=== PATIENT | male | born 1980 | race African-American/Black ===

== ENCOUNTER → 2016-07-23 | Day surgery (SDC) | payer OTHER ==
[~2016-07-23] MED LIST: NO MEDICATIONS
--- NOTE | ~2016-07-23 | OR ---
Unit #: [id number] #: [id number] Patient: ILSA BLOOM [id number] [address] [place], [place] [address] [id number] O MR#: [id number] NAME: ILSA BLOOM ROOM: Date of Procedure: 07/23/2016 Admission Date: 07/23/2016 Surgeon: Julius Melo M.D. : 1980 Attending Physician: Julius Melo M.D. Primary Care Physician: Primary Care Physician No OPERATIVE REPORT PREOPERATIVE DIAGNOSIS Enlarging lipoma, left upper back. POSTOPERATIVE DIAGNOSIS Enlarging lipoma, left upper back. PROCEDURE PERFORMED Excision of enlarging lipoma, left upper back 6 x 6 cm with layered closure. ANESTHESIA General LMA anesthesia with 0.5% Marcaine plain local anesthesia. FINDINGS The patient was found to have a 6 x 6 cm lipoma, that was excised completely and sent to Pathology. SPECIMENS Sent to Pathology. COMPLICATIONS None apparent. CONDITION The patient tolerated the procedure well. INDICATIONS FOR PROCEDURE The patient is a 36-year-old black male, who presents at this time with enlarging subcutaneous mass of the left upper back. He presents at this time for excision for pathologic diagnosis and treatment. DESCRIPTION OF PROCEDURE After obtaining informed consent as well as receiving preoperative antibiotics, the patient was brought to the operating room and after adequate general LMA anesthesia was obtained, had his left upper back prepped and draped in a sterile fashion after the patient was very carefully placed into the right lateral decubitus position with axillary roll in place and all extremities manipulated very carefully and all pressure points carefully padded. Incision was made with a knife and it was taken down through the subdermal tissues with electrocautery. The lesion was consistent with a lipoma. It was bluntly and sharply dissected Unit #: [id number] #: [id number] Patient: ILSA BLOOM free from the surrounding structures with good hemostasis and sent to Pathology. The wound was irrigated and hemostasis was obtained with the Bovie, infiltrated with 0.5% Marcaine plain local anesthesia and the subdermal tissues were closed with interrupted 3-0 Vicryl sutures taking a bite of the base of the wound to obliterate any space. The skin was closed with 4-0 Vicryl subcuticular stitch. Benzoin and Steri-Strips were applied over the wound in an occlusive manner followed by dry dressing and a Tegaderm dressing. Needle counts, sponge counts, and instrument counts were all correct as reported by the scrub nurse x2. The patient went from the operating room to the recovery room in stable condition. Dictated by... Frank Hernandez/kyle TD: 07/23/2016 13:55 JOB #: [id number] CC: [facility] OPERATIVE REPORT X Julius Melo MD X PROCEDURE OPERATIVE NOTE
== END | disposition home or self-care (01) ==
LOC: CSUR 07:38
DX: D17.1 Benign lipomatous neoplasm of skin and subcutaneous tissue of trunk (principal); J45.909 Unspecified asthma, uncomplicated; Z87.891 Personal history of nicotine dependence
CPT/HCPCS: 88304; J0690; J2250; J3010